=== PATIENT | female | born 1975 | race Caucasian/White ===

== ENCOUNTER 2019-04-01 15:25 | Emergency (ER) | payer MEDICAID, SELFPAY ==
[2019-04-01 16:26] VITALS: BP 129/61; PULSE 115; RESP 20; TEMP 38.1; O2SAT 99
--- NOTE | 2019-04-01 16:53 | ED.URI ---
HPI - URI/Sore Throat General Chief Complaint: Upper Respiratory Infection Stated Complaint: Possible Sinus Infection Time Seen by Provider: 04/01/19 16:47 Source: patient and RN notes reviewed Mode of arrival: ambulatory Limitations: no limitations History of Present Illness HPI Narrative: Patient presents today with a 2-day history of sore throat, body aches, headache, cough. She has been taking ibuprofen and Advil Cold and Sinus with some relief. She did not receive a flu vaccine this season. She has been exposed to strep throat. MD elicited complaint: cough Related Data Home Medications Medication Instructions Recorded Confirmed No Home Medications 04/01/19 04/01/19 Allergies Allergy/AdvReac Type Severity Reaction Status Date / Time cephalexin Allergy Unknown Rash Verified 04/01/19 16:51 Sulfa (Sulfonamide Allergy Unknown HIVES Verified 04/01/19 16:51 Antibiotics) guaifenesin [From Mucinex] Allergy Hives Verified 04/01/19 16:52 Review of Systems Review of Systems: Narrative: CONSTITUTIONAL: Denies fever, chills, or sweats.+Body aches EYES: Denies visual changes, redness, or discharge. ENT: Denies rhinorrhea, congestion, or otalgia.+Sore throat CARDIOVASCULAR: Denies chest pain, palpitations, or edema. RESPIRATORY: Denies dyspnea.+Cough GASTROINTESTINAL: Denies abdominal pain, nausea, vomiting, or diarrhea. GENITOURINARY: Denies dysuria or hematuria. SKIN: Denies rash, itching, or wounds. MUSCULOSKELETAL: Denies back pain, joint pain, or myalgia. NEUROLOGIC: Denies numbness, tingling, or weakness.+Headache PSYCH: Denies depression or anxiety. PMFSH Surgical History Surgical History (Updated 01/13/19 @ 19:36 by Julio César Quiñones PA-C) H/O umbilical hernia repair Social History Social History (Updated 01/13/19 @ 19:35 by Julio César Quiñones PA-C) Smoking status: Never smoker Comments At time of signature, I have reviewed and agree with nursing past medical, surgical, social and family history unless otherwise noted. Please see nursing chart for further information. There is no relevant family history pertinent to the presenting complaint Exam Narrative: Exam Narrative: GENERAL: Well-appearing, well-nourished, and in no acute distress. HEAD: Normocephalic, atraumatic. EYES: EOMI. No redness or drainage. Conjunctivae normal. ENT: Mucous membranes pink and moist. Nares clear. No rhinorrhea. TMs normal bilaterally. Throat normal. Uvula midline. NECK: Normal AROM. Supple. No lymphadenopathy. CHEST: No respiratory distress. Clear to auscultation. HEART: Regular rate and rhythm. No murmur appreciated. Normal peripheral pulses. ABDOMEN: Soft, nontender, nondistended, normal active bowel sounds. MUSCULOSKELETAL: No bony tenderness. EXTREMITIES: Normal range of motion. No edema. SKIN: Warm, dry, no rash. NEURO: No focal deficits. Alert and oriented x3. Gait steady. PSYCH: Normal affect. No signs of depression or anxiety. Course Vital Signs Vital signs: Vital Signs Temperature 100.6 F H 04/01/19 16:26 Pulse Rate 115 H 04/01/19 16:26 Respiratory Rate 20 04/01/19 16:26 Blood Pressure 129/61 04/01/19 16:26 Pulse Oximetry 99 04/01/19 16:26 Temperature 100.6 F H 04/01/19 16:26 Pulse Rate 115 H 04/01/19 16:26 Respiratory Rate 20 04/01/19 16:26 Blood Pressure 129/61 04/01/19 16:26 Pulse Oximetry 99 04/01/19 16:26 Reviewed. Pt has been instructed to follow up with her PCP regarding her elevated blood pressure today. MDM - URI/Sore Throat Differential Diagnosis Differential diagnosis: Likely upper respiratory infection, otitis media, viral infection, influenza, pharyngitis and other Lab Data Attestation: I reviewed the patient's lab results. Lab results narrative: Rapid strep negative Labs: Influenza A Screen Positive Reference Range: Negative Influenza B Screen Negative Reference Range: Negative Critica
== END 2019-04-01 17:00 | disposition home or self-care (01) ==
PROVIDERS: Emergency Provider Nurse Practitioner; PCP Internal Medicine
DX: J10.1 Influenza due to other identified influenza virus with other respiratory manifestations (principal)
CPT/HCPCS: 87081; 87804; 87880; 99213; G0463

== ENCOUNTER 2019-04-10 23:11 | Emergency (ER) | payer MEDICAID, SELFPAY ==
[2019-04-10 23:18] VITALS: BP 133/81; PULSE 95; RESP 18; TEMP 37.1; O2SAT 100
[2019-04-10 23:46] LABS: Add Urine Microscopic? YES; Appearance Urine Clear (Clear); Bilirubin Urine Negative (Negative); Blood Urine 1+ (Negative); Color Urine Yellow (Yellow); Glucose Urine UA Negative (Negative); Ketones Urine Negative (Negative); Leukocyte Esterase Ur Trace LEU/UL (Negative); Mucus Urine Few /lpf; Nitrate Urine Negative (Negative); Protein Urine 1+ mg/dL (Negative); Specific Grav Ur 1.027 (1.001-1.035); Squamous Epithelial Cell Urine Many /hpf (Few); Urobilinogen Urine Negative mg/dL (<2.0)
--- NOTE | 2019-04-11 01:08 | PC.NURSE ---
PT CAME BACK TO INTAKE DESK IMMEDIATELY AFTER BEING TAKEN BACK TO ED ROOM #9 AND STARTED WALKING TOWARD MAIN ED DOORS. THIS NUCLEAR WEAPONS CUSTODIAN ASKED PT IF SHE WAS LEAVING. PT TURNED AROUND AND RESPONED YES AND AMBULATED OUT OF ED WITH STEADY GAIT AT THIS TIME.
--- NOTE | 2019-04-11 01:09 | PC.NURSE ---
pt brought back to room 9 pt decided since she was able to void in waiting room and she was feeling better decided to leave and walk out at 0108
== END 2019-04-11 01:08 | disposition left against medical advice (07) ==
LOC: ANHED 23:58
PROVIDERS: General Practice; PCP Internal Medicine
DX: M54.6 Pain in thoracic spine (principal)
CPT/HCPCS: 81001; 81025; 99199

== ENCOUNTER 2023-02-23 08:50 | Outpatient (CLI) | payer OTHER, SELFPAY ==
--- NOTE | ~2023-02-23 | XR_ITS ---
XR UGIAC w barium swallow DATE: 02/23/2023 10:35 INDICATION: Globus sensation. Dysphagia. Heartburn. TECHNIQUE: Fluoroscopy and rapid sequence spot radiographs and overhead radiographs of the esophagus during oral ingestion of barium. Spot and overhead radiographs of stomach and duodenum Air-contrast technique COMPARISON: None FINDINGS: There is normal deglutition and esophageal peristalsis. There is a very small sliding hiatal hernia. No reflux was demonstrated. No stricture, mucosal fold thickening, erosion, ulceration, diverticulum or intraluminal mass lesion of the esophagus, stomach or duodenum is detected. IMPRESSION: Very small sliding hiatal hernia; otherwise negative Reviewed, dictated and finalized at [facility]. Reviewed, dictated and finalized at location [facility]. [facility] SPECIAL[facility]
== END 2023-02-23 08:51 | disposition home or self-care (01) ==
PROVIDERS: PCP Internal Medicine; Visit Provider Internal Medicine
DX: R13.10 Dysphagia, unspecified (principal); K44.9 Diaphragmatic hernia without obstruction or gangrene
CPT/HCPCS: 74246

== ENCOUNTER 2023-05-09 10:01 | Outpatient (CLI) | payer OTHER, SELFPAY | END 2023-05-09 10:02 | disposition home or self-care (01) | LOC: ANHSURGERY 10:06 | PROVIDERS: PCP Internal Medicine; Visit Provider Surgery | DX: K43.2 Incisional hernia without obstruction or gangrene (principal); Z01.818 Encounter for other preprocedural examination | CPT/HCPCS: 36415; 86850; 86900; 86901 ==

== ENCOUNTER 2023-05-12 01:18 | Day surgery (SDC) | payer OTHER, SELFPAY ==
[2023-05-02 15:26] VITALS: BMI 34.1
--- NOTE | 2023-05-02 15:30 | PC.NURSE ---
Report to the Outpatient Waiting Room, entrance under the green pavilion located off [facility], at time 6:00 on date 05/12/23. Planned Procedure Time: 7:30. Time changes happen often and if your time is changed the preop area will call you the afternoon before. - You and your visitor will be asked to self-screen and do not enter if you have any COVID symptoms. - A mask is optional within the hospital at this time. Patients may have clear liquids (water, carbonated beverages, clear teas, apple juice) until 3 hours prior to surgery (4:30) with a maximum of 20 ounces. - No food from midnight until time of surgery Take the following medications with a SIP of water the morning of surgery: NONE DO NOT STOP ANY OF YOUR OTHER PRESCRIPTION MEDICATIONS PRIOR TO SURGERY ?EXCEPT THE FOLLOWING Medications to discontinue per physician: IBUPROFEN Date to take last dose: PER DR. TOVAR Please no make-up, nail estonian, hairspray, perfume, deodorant, or body powder the day of surgery. No jewelry (including any body piercings) or valuables the day of surgery, leave them at home. Please take a shower or bath the night before, or the morning of, surgery with an antibacterial soap. Wear comfortable, loose fitting clothing. - Jewelry must be removed prior to entering the operating room. Rings and piercings that are not removed may be cut off. - The hospital will not accept responsibility for valuables. - Please leave all valuables, including medications, at home the day of surgery. If you are going home after surgery, a licensed log driver must drive you home. - NO public transportation without another adult if you receive anesthesia. - We recommend that an adult stay with you for 24 hours following discharge. - We also recommend that you do not drive, make important decision, drink alcoholic beverages, or take any drugs that were not prescribed by your health care provider for at least 24 hours after your discharge time. Follow any additional instructions given to you from your surgeon. If you or anyone in your household have experienced Covid symptoms in the past week, please notify your surgeon or the nurse liaison at the phone number below for possible testing. Telephone instructions given to GRIFFIN CHILDS and asked if any additional questions and then verbalized understanding. Patient advised to call surgeon office or pre surgery nurse liaison [phone] if any additional questions.
[2023-05-12] VITALS (11 sets, daily range): BP systolic 103–124; BP diastolic 55–74; PULSE 81–99; RESP 14–20; TEMP 36.4–36.8; O2SAT 94–100
[2023-05-12] MEDS: ACETAMINOPHEN 500 MG TABLET 1000 MG PO (06:37)
[2023-05-12] MEDS: KETOROLAC 15 MG/ML VIAL (*BKC) IV PUSH ×2 (06:50→10:38)
--- NOTE | 2023-05-12 07:11 | WPDANESEPPF ---
Anes - Initial Pre Proc Eval Procedure: Operation Date: 05/12/23 07:30 Proposed Procedures p Robotic Assisted Laparoscopic Recurrent Incisional Ventral Hernia Repair with Mesh, Possible Open - Charlie Pickard MD Date/Time: 05/12/23 07:11 Surgeon: Charlie Pickard MD Pre Op Diagnosis: Recurrent Ventral Incisional Hernia Patient Data Age: 47 Gender: F Height: 1.65 m Weight: 93 kg Allergies Allergy/AdvReac Type Severity Reaction Status Date / Time cephalexin Allergy Unknown Rash Verified 05/12/23 06:15 Sulfa (Sulfonamide Allergy Unknown HIVES Verified 05/12/23 06:15 Antibiotics) guaifenesin [From Mucinex] Allergy Hives Verified 05/12/23 06:15 Home Medications Medication Instructions Recorded Confirmed Type famotidine 10 mg tablet (Pepcid AC) 10 mg PO DAILY 03/09/23 05/12/23 History ibuprofen 200 mg capsule 200 mg PO Q6H PRN Pain 03/09/23 05/12/23 History Patient hx anesthesia problems: none Family hx anesthesia problems: none Results Review: All pre-operative results and documents have been reviewed as part of the pre-operative evaluation. [facility]LY [facility] Past Medical History Medical History GERD (gastroesophageal reflux disease) Surgical History Surgical History H/O umbilical hernia repair Family History Family History Mother Cervical cancer Diabetes mellitus Father Lung cancer Social History Social History Smoking packs per day: 0.5 Smoking cigarettes per day: 10.0 Years smoked: 10 Smoking pack-years: 5.00 Smoking status: Former smoker Tobacco type: cigarettes Smoking end date: 02/06/06 Alcohol intake: never Alcohol use details: rarely Substance use: never Substance use type: does not use Living arrangements: with family 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 Informed Consent: The patient's anesthetic plan and its attendant risks and benefits were discussed with the patient/family/POA. Questions were solicited and answers provided to the satisfaction of the patient/family/POA.
--- NOTE | 2023-05-12 07:21 | PM.IMHP ---
H&P: HPI History of Present Illness Date/Time: 05/12/23 07:21 Chief Complaint: Recurrent periumbilcal ventral hernia Narrative: Estephanie is a 47 y/o female who presents with a small bulge to the right of her umbilicus at the request of Dr. Johnson. She states this started about 1 year ago. She states the bulge has increased in size and is occasionally tender. Bulge is reducible when she lays down. She struggles with constipation. She had an umbilical hernia repair with no [place] [address] Whitehead. Review of Systems Review of Systems: The remainder of the review of systems to include constitutional, HEENT, cardiovascular, respiratory, GI, , integumentary, musculoskeletal, endocrine, immunologic, hematologic, psychiatric, and neurologic are all negative except for which is mentioned above in the HPI. [facility] Past Medical History Medical History GERD (gastroesophageal reflux disease) Surgical History Surgical History H/O umbilical hernia repair Family History Family History Mother Cervical cancer Diabetes mellitus Father Lung cancer Social History Social History Smoking packs per day: 0.5 Smoking cigarettes per day: 10.0 Years smoked: 10 Smoking pack-years: 5.00 Smoking status: Former smoker Tobacco type: cigarettes Smoking end date: 02/06/06 Alcohol intake: never Alcohol use details: rarely Substance use: never Substance use type: does not use Living arrangements: with family 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 Gender identity (if verbalized by the patient): Female Spiritual care concerns: No Meds Home Medications and Allergies Home Medications Medication Instructions Recorded Confirmed Type famotidine 10 mg tablet (Pepcid AC) 10 mg PO DAILY 03/09/23 05/12/23 History ibuprofen 200 mg capsule 200 mg PO Q6H PRN Pain 03/09/23 05/12/23 History Allergies Allergy/AdvReac Type Severity Reaction Status Date / Time cephalexin Allergy Unknown Rash Verified 05/12/23 06:15 Sulfa (Sulfonamide Allergy Unknown HIVES Verified 05/12/23 06:15 Antibiotics) guaifenesin [From Mucinex] Allergy Hives Verified 05/12/23 06:15 Exam Const: General: comfortable and no acute distress HENMT: Ears: TM's normal bilaterally Face/Nose/Sinus: Normal nares present Mouth: Yes moist mucous membranes Eyes: General: appearance normal, both eyes and all related structures Sclera: sclerae normal Pupils: Equal, round and reactive pupils present EOM: EOMs intact bilaterally Neck: Neck: supple and no JVD Resp: Effort & Inspection: normal respiratory effort Auscultation: clear to auscultation bilaterally Cardio: Rate: regular rate Rhythm: regular rhythm GI: Other: Soft, non distended, minimal tenderness in the periumbilical region. Small incisional recurrent periumbilical hernia. Mild supraumbilical diastasis. Defect likely 2-3cm. Skin: General skin exam: normal color and no rashes or lesions noted Neuro: General: gait normal Speech: normal speech Extrem: General: normal to inspection Psych: Mental Status: mental status grossly normal Affect: normal affect Assessment and Plan Assessment and plan (1) Recurrent ventral incisional hernia: Code(s): K43.2 - Incisional hernia without obstruction or gangrene Status: Acute Assessment and Plan: I have reviewed Dr. Johnson's office note prior to the office visit. The patient has a small bulge to the right of her umbilicus that has increased in size and is tender. A recurrent ventral incisional hernia was noted on physical exam. I have recommended a robotic assisted laparoscopic recurrent incisional ventral hernia repair with mesh, possible open, to be done under general anesthesia as an
[2023-05-12] MEDS: SCOPOLAMINE 1 MG PATCH 1 PATCH TRANSDERM (07:24)
--- NOTE | 2023-05-12 07:24 | WPDHPUPDATE1 ---
History and Physical Update Update Date/Time: 05/12/23 07:24 History and Physical has been reviewed, including an updated exam of the patient. There are NO changes in the patient's condition. Risks, benefits, and alternatives have been discussed and questions answered. Patient agrees to proceed with procedure.
[2023-05-12] MEDS: LACTATED RINGERS 1,000 ML 30 ML IV CONT ×3 (07:25→12:27)
[2023-05-12] MEDS: CLINDAMYCIN 900 MG/D5W 50 ML 900 MG/50 ML PIGGYBACK 50 MG IVPB (07:45)
[2023-05-12] MEDS: LIDO 1%/EPINEPHRINE 1:100,000 20 ML VIAL 30 ML INFILTRATE (08:42)
[2023-05-12] MEDS: BUPivacaine HCL 0.5% PF 30 ML VIAL INFILTRATE (08:43)
[2023-05-12] MEDS: fentaNYL CITRATE INJ (*CRX) 100 MCG/2 ML VIAL 25 MCG IV PUSH ×4 (11:47→12:52)
[2023-05-12] MEDS: oxyCODONE HCL (*CRX) 5 MG TAB IR PO (13:09)
--- NOTE | 2023-05-12 19:23 | W.PM.PROC2 ---
Procedure Note - Detailed Date of Procedure 05/12/23 Pre-op Diagnosis Recurrent Incarcerated Ventral Incisional Hernia Post-op Diagnosis Same Procedure Performed robotic assisted laparoscopic incarcerated recurrent incisional hernia repair with [employer] Synecor preperitoneal mesh ( [id number]) Surgeon Charlie Pickard MD Anesthesia General Indications Patient is a 47-year-old female who presented with mildly painful bulge in the periumbilical region. On examination she appeared to have an incarcerated recurrent umbilical ventral hernia. She had a previous open umbilical hernia repair many years ago. This is done without use of any mesh. She presents now for a robotic assisted laparoscopic repair of the incarcerated recurrent incisional hernia. Findings Patient actually had multiple Guinean cheese defects. The largest defect was 2cm located just above the umbilicus. A 2nd defect measuring 1cm was about 5cm below the umbilicus in the midline and a 3rd defect was noted to be about 5cm above the periumbilical defect and this defect measured approximately 1cm in diameter. All of these defects had portions of preperitoneal fat or omentum within them which was all viable. No bowel involvement with these hernias was noted. The distance the cephalad and most caudad defect was 10cm. Description of Procedure After informed consent was obtained patient brought to the operating room she was placed supine position and general endotracheal anesthesia was administered. Duffy catheter was placed decompress the bladder. The abdomen was then prepped and draped usual sterile fashion. A time-out was then performed correctly identifying the patient as well as procedure to be performed verified she was given perioperative IV antibiotics. I 1st started by placing a 5mm Optiview port left upper quadrant with a direct optical insertion. Once inside the abdomen insufflated to adequate pneumoperitoneum of 15mmHg of CO2. In looking at the abdomen underneath the area the umbilicus it appeared that she had a recurrent incisional hernia with incarcerated preperitoneal fat. I then placed additional robotic trocar ports to include 8mm trocar ports in the right lateral abdominal wall under direct visualization. I then had the Jasbir robot brought to the patient's bedside and then I switched out the 5mm Optiview port to a 10mm Optiview port. The Betaspringi robot was then docked to the patient's right side of the bed and then the arms the robot were attached to the robotic ports. Robotic instruments were then advanced into the abdomen under direct visualization. I then scrubbed out the procedure procedure and sat down at the robotic console to perform the dissection robotically. I 1st started by making a peritoneal flap the left side of the abdomen utilizing robotic deborah very carefully created a preperitoneal flap along the left side of the abdomen. I continued my dissection towards the midline with energized deborah taking great care not to make too many being holes into the peritoneum. Underneath the falciform ligament I found a portion of possible that was incarcerated within a mid epigastric hernia defect measuring about 1cm in diameter. The incarcerated portions of the falciform ligament were reduced out of the defect. I continued my dissection more toward the umbilicus where the main hernia defect was noted. Old suture material was seen and there was no mesh in the area. I then reduced additional preperitoneal fat out of this recurrent hernia defect and this defect measured approximately 2cm in diameter. And diabetic continued my dissection in the preperitoneal space to the lower abdomen I encountered yet a 3rd 1cm hernia defect midline and the preperitoneal fat was reduced out of this defect as well. I continued creating a preperitoneal plane to the right mid lateral abdominal wall. At this point I felt I had enough dissection of the preperitoneal space done to place the m
== END 2023-05-12 13:58 | disposition home or self-care (01) ==
PROVIDERS: PCP Internal Medicine; Visit Provider Surgery
PROC: (CPT 49618; principal; 2023-05-12 07:30)
DX: K43.0 Incisional hernia with obstruction, without gangrene (principal); K21.9 Gastro-esophageal reflux disease without esophagitis; Z87.891 Personal history of nicotine dependence; E66.9 Obesity, unspecified; Z68.35 Body mass index [BMI] 35.0-35.9, adult
CPT/HCPCS: 49618; S2900; A9270; J1100; J1885; J2250; J3010; J7120

== ENCOUNTER 2024-05-30 08:22 | Outpatient (RCR) | payer OTHER, SELFPAY ==
--- NOTE | 2024-05-30 10:00 | OPREHPOC ---
Outpatient Therapy Plan of Care This is a Multidisciplinary Plan of Care that may contain components documented by all disciplines (PT, OT, and ST.) PT Problem 1 PT Problem #1 Knowledge Deficit PT Goal 1 Goal / Goal Update Independent and compliant with HEP. Target Visit 4 PT Problem 2 PT Problem #2 Pain PT Goal 1 Goal / Goal Update Pt to report no more than 5/10 pain at worst. Target Visit 10 PT Problem 3 PT Problem #3 Impaired Strength PT Goal 1 Goal / Goal Update Pt to improve gross bilat hip and ankle strength to 5/5 without pain. Target Visit 10 PT Problem 4 PT Problem #4 Impaired Range of Motion PT Goal 1 Goal / Goal Update Pt to improve L hip passive ER ROM to 50 deg without pain. Target Visit 10 PT Problem 5 PT Problem #5 Impaired Functional Mobility PT Goal 1 Goal / Goal Update Pt to be able to cross L hip over into figure 4 position without pain. Pt to be able to roll and get in/out of bed without pain. Pt to note 20% improvement on LEFS. Target Visit 10
--- NOTE | 2024-05-30 10:00 | PTOPEVAL1 ---
Assessment and note entered by Gladys Griffin, PT Evaluation Information Assessment Status Evaluation Diagnosis R ankle pain, L hip flexor tightness ICD-10 Condition Codes (PT) Pain in right ankle and joints of right foot M25. 571 Other ICD-10 Condition Codes ( M24.552 PT) Onset 04/29/24 Subjective Information Pt reports R ankle pain started one month ago after jumping rope. She reports she looked down at her ankle one day and it was very swollen. She hasn't jumped rope in a week and a half due to this. States she also has plantar fasciitis and thinks it might be related to the swelling. She also notes L hip pain that has been going on for more than a year. Her pain occurs when she crosses her L leg over her R and let's her knee fall to the side. When doing this she notes a sharp pain in the front of the hip and in the groin. Pain also occurs when walking long distances and sitting for more than 15 mins. Pt also reports history of back, neck and TMJ pain . Reported Pain Level Pain Score 0,7: Self Report Assessment PT Clinical Summary Mrs. Carmona is a 48 yo female who enters the clinic with complaints of R ankle pain and L hip tightness. Her ankle strength and mobility are good bilaterally but she verbalized bilateral swelling that is worse at night. Recommended pt to return to doctor to discuss this. Regarding her hip, pt demonstrates moderate restriction in L hip ER AROM/PROM as well as pain with end-range flexion, ER and IR. She also experiences hip and low back/SI region pain with functional activities such as prolonged sitting and transitional movements like rolling in bed. She will benefit from skilled PT intervention to address these deficits to be able to perform functional and recreational tasks with less pain. Plan of Care Interventions Electrical Stimulation,Gait Training,Hot Pack/Cold Pack,Manual Therapy,Neuro Re-education,Patient/ Caregiver Education,Therapeutic Activities, Therapeutic Exercise,Self-Care/Home Management PT Services Indicated Yes Treatment Frequency and 2x/week for 10 visits Duration These treatments will address the objective and functional deficits as defined above. The patient will be advanced safely and appropriately in order for the patient to progress towards his/her prior level of function. Additional exercises will be introduced and as well as a comprehensive home exercise program upon discharge, if needed, ?to ensure carryover of functional gains achieved in the clinic. This treatment plan has been reviewed and agreement upon by the patient.
--- NOTE | 2024-07-11 16:22 | OPREHPOC ---
Outpatient Therapy Plan of Care This is a Multidisciplinary Plan of Care that may contain components documented by all disciplines (PT, OT, and ST.) PT Problem 1 PT Problem #1 Knowledge Deficit PT Goal 1 Goal / Goal Update Independent and compliant with HEP. Target Visit 4 Progress Met PT Goal 2 Goal / Goal Update Continue to progress PT Problem 2 PT Problem #2 Pain PT Goal 1 Goal / Goal Update Pt to report no more than 5/10 pain at worst. Target Visit 10 Progress Not Met PT Goal 2 Goal / Goal Update continue Target Visit 18 PT Problem 3 PT Problem #3 Impaired Strength PT Goal 1 Goal / Goal Update Pt to improve gross bilat hip and ankle strength to 5/5 without pain. Target Visit 10 Progress Not Met PT Goal 2 Goal / Goal Update Continue Target Visit 18 PT Problem 4 PT Problem #4 Impaired Range of Motion PT Goal 1 Goal / Goal Update Pt to improve L hip passive ER ROM to 50 deg without pain. Target Visit 10 Progress Not Met PT Goal 2 Goal / Goal Update Continue Target Visit 18 PT Problem 5 PT Problem #5 Impaired Functional Mobility PT Goal 1 Goal / Goal Update Pt to be able to cross L hip over into figure 4 position without pain. -met Pt to be able to roll and get in/out of bed without pain. -not met Pt to note 20% improvement on LEFS. -not met Target Visit 10 PT Goal 2 Goal / Goal Update Continue 2 & 3 Target Visit 18
--- NOTE | 2024-07-11 16:22 | PTOPPROG ---
Assessment and note entered by Penny Farah, PT Evaluation Information Assessment Status Progress Diagnosis R ankle pain, L hip flexor tightness ICD-10 Condition Codes (PT) Pain in right ankle and joints of right foot M25. 571 Other ICD-10 Condition Codes ( M24.552 PT) Onset 04/29/24 Subjective Information Pt reports that she is able to cross her left leg when sitting now without limitations but her pain is about the same. She continues to have bilateral ankle swelling, decreased tolerance to walking, and decreased tolerance to sitting. Imaging of her hips revealed mild osteoarthritis. She has a history of low back pain as well. She does feel she is starting to notice improvements in her hips and would like to continue with PT. Assessment PT Clinical Summary April Carmona has completed 10 skilled PT visits for left hip pain. She also was evaluated for right ankle pain but reports her ankle has not been painful. She reports her hips are starting to feel a little better but she has chronic low back pain as well on the left side and that is still present. She has pain with getting out of bed, laying on the left side, and performing heavy housechores. She demonstrates tenderness on the left greater trochanter, decreased hip IR ROM, decreased lumbar AROM, decreased core and left hip strength, and decreased functional mobility. She will continue to benefit from skilled PT to further address left hip and low back pain. Plan of Care Interventions Electrical Stimulation,Hot Pack/Cold Pack,Manual Therapy,Neuro Re-education,Patient/Caregiver Education,Therapeutic Activities,Therapeutic Exercise PT Services Indicated Yes Treatment Frequency and 2 times a week for 8 visits Duration These treatments will address the objective and functional deficits as defined above. The patient will be advanced safely and appropriately in order for the patient to progress towards his/her prior level of function. Additional exercises will be introduced and as well as a comprehensive home exercise program upon discharge, if needed, ?to ensure carryover of functional gains achieved in the clinic. This treatment plan has been reviewed and agreement upon by the patient.
--- NOTE | 2024-07-23 16:39 | PTOPDC ---
Assessment and note entered by Marcia Rashid DPT Evaluation Information Assessment Status Discharge Diagnosis R ankle pain, L hip flexor tightness ICD-10 Condition Codes (PT) Pain in right ankle and joints of right foot M25. 571 Other ICD-10 Condition Codes ( M24.552 PT) Onset 04/29/24 Subjective Information Patient reports she has been able to get into and out of bed with no issues. She reports sitting for prolonged periods of time has been the most troublesome with back and hip pain resulting. She reports she has a follow up with MD soon but is not sure when. Reported Pain Level Pain Score 5,0,0: Self Report Assessment PT Clinical Summary Mrs. Carmona attended 12 visits of skilled PT with some progressions towards goals but did not meet all goals. She improved LE strength and improved LE flexibility but did not meet set goals. She continues to have pain in the low back and hip especially in prolonged sitting. She will be discharged to independent [facility] and instructed to follow up with MD due to plateau in progress. Plan of Care PT Services Indicated No
== END 2024-07-23 20:00 | disposition home or self-care (01) ==
LOC: CHSPT 08:22
PROVIDERS: PCP Nurse Practitioner Family; Visit Provider Nurse Practitioner Family
DX: M25.571 Pain in right ankle and joints of right foot (principal); M24.552 Contracture, left hip
CPT/HCPCS: 71046; 93005; 97110; 97140; 97161; 97530; 97750

== ENCOUNTER 2024-06-03 10:20 | Outpatient (CLI) | payer OTHER, SELFPAY ==
--- NOTE | ~2024-06-03 | XR_ITS ---
XR chest 2V Ordering provider: Dmitri Johnson MD History: 48 years Female with . PALPITATIONS . Comparison: February 25, 2013 FINDINGS: MEDIASTINUM: The cardiac silhouette is not enlarged. LUNGS: No effusions or pneumothorax. Opacity seen in the right upper lobe area which may be focal ate lectasis versus pneumonia. Nodule cannot be excluded. Follow-up advised. OTHER: No free air under the diaphragm. Degenerative changes of the spine. IMPRESSION: Focal area of atelectasis versus pneumonia versus nodule. 3 months follow-up advised. Reviewed, dictated and finalized at location A. IMPRESSION: Focal area of atelectasis versus pneumonia versus nodule. 3 months follow-up ad alejanrdoed.
--- NOTE | 2024-06-03 10:29 | ECG_ITS ---
Test Date: 2024-06-03 10:47:46 Measurements Intervals [place] Rate: 94 P: 26 MN: 145 QRS: 31 QRSD: 81 T: 47 QT: 342 QTc: 429 Interpretive Statements SINUS RHYTHM BASELINE ARTIFACT- III NORMAL ECG No previous ECG available for comparison Electronically Signed On 06-03-2024 11:05:22 CDT by Gustavo Meza D.O.
--- OUTSIDE RECORDS SUMMARY | 2024-06-03 11:54 | XMS_ITS | Clinical Summary ---
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 Name Role Phone Unavailable Primary Care Provider Unavailabl e Social History Tobacco Use Types Packs/Day Years Used Date Smoking Tobacco: Never Assessed Comments Unknown Sex and Gender Information Value Date Recorded Sex Assigned at Not on file Legal Sex Female 11:10 PM CDT Gender Identity Not on file Sexual Orientation Not on file Plan of Treatment Health Maintenance Due Date Last Done Comments Cervical Cancer Screening Pa p Smear (Age 30 to 64) Every 3 Years 1977 Colorectal Cancer Screening Colonoscopy (10 Years) 1977 Annual Physical 1980 Hepatitis C 08/19/1995 DTaP, Tdap and Td Vaccines ( 1 - Tdap) 1996 Hepatitis B Vaccines (1 of 3 - 19+ 3-dose series) 1996 Cervical Cancer Screening Pa p with HPV Testing (Age 30 to 64) Every 5 Years 08/19/2007 Cervical Cancer Screening with HPV 08/19/2007 Mammogram Screening 2017 COVID-19 Vaccine (2023-2 5 season) 2023 Meningococcal B Vaccine Aged Out No l onger eligible based on patient's age to complete this topic Meningococcal Vaccine Aged Out No hilda yamile eligible based on patient's age to complete this topic Pneumococcal Vaccine: Pediat rics (0 to 5 Years) and At-Risk Patients (6 to 49 Years) Aged Out No longer eligible b ased on patient's age to complete this topic RSV Immunizations Under 20 Months Aged Out No longer eligible based on patient's age to complete this topic
--- OUTSIDE RECORDS SUMMARY | 2024-06-03 11:54 | XMS_ITS | Clinical Summary ---
Author Organization [facility] Address [address] [place] [address] Care Team Providers Care Performance Analyst Name Role Phone Dmitri Johnson MD Primary Care Provider [phone] Source Comments [facility],non-owned Affiliates and Associated Physician Practices is amultiple site organization consisting of ambulatory clinics and hospital sitesin [place], [place], [place] and [place]. This disclosure is being madepursuant to the Care Everywhere program and may not contain all information available regarding this patient. 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 Gender Identity Not on file Sexual Orientation Not on file Plan of Treatment Health Maintenance Due Date Last Done Comments COLOGUARD (AGES 45-75) - COL ON CA SCREENING 1977 COLON MONITORING 1977 COLONOSCOPY - COLON CA SCREENING 1977 CT COLONOGRAPHY - COLON CA SCREENING 1977 Colorectal Cancer Screening 1977 FIT - COLON CA SCREENING 1977 FLEX SIG - COLON CA SCREENING 1977 LIPID TESTING 1977 MAMMOGRAM 1977 HIV SCREENING 1992 HEPATITIS C SCREENING 08/14/1995 DTAP/TDAP/TD VACCINES (1 - Tdap) 1996 HEPATITIS B VACCINE (1 of 3 - 19+ 3-dose series) 1996 COVID-19 VACCINE (2023-2 5 season) 2023 DEPRESSION SCREENING 02/07/2024 INFLUENZA VACCINE (Season Ended) 2024 ZOSTER VACCINE (1 of 2) 08/19/2027 HIB VACCINE Aged Out No longer eligi ble based on patient's age to complete this topic HPV VACCINE Aged Out No longer eligi ble based on patient's age to complete this topic MENINGOCOCCAL (Group B) VACC INE SHARED DECISION-MAKING Aged Out No longer eligibl e based on patient's age to complete this topic MENINGOCOCCAL GROUPS A/C/Y/W VACCINE Aged Out No longer eligible b ased on patient's age to complete this topic PNEUMOCOCCAL VACCINE Aged Out No long er eligible based on patient's age to complete this topic Care Teams Performance Analyst Relationship Specialty Start Date End Date Dmitri Johnson MD [address] [place] [id number] PCP - General 04/14/10
== END 2024-06-03 10:21 | disposition home or self-care (01) ==
LOC: CHSLAB 10:22 → CHSIMG 10:26
PROVIDERS: PCP Internal Medicine; Visit Provider Internal Medicine
DX: R60.9 Edema, unspecified (principal); R00.2 Palpitations; Z83.3 Family history of diabetes mellitus; R91.8 Other nonspecific abnormal finding of lung field
CPT/HCPCS: 71046; 93005

== ENCOUNTER 2024-06-07 12:11 | Outpatient (CLI) | payer OTHER, SELFPAY ==
--- NOTE | ~2024-06-07 | CT_ITS ---
Clinical Indication: Lung nodule CT Scan of the Chest with Contrast: Technique: Contiguous sections were acquired throughout the chest after intravenous administration of 100 cc of Omnipaque 350. Dose reduction technique was used on this scan by utilizing automated expos ure control and iterative reconstruction technique. The dose-length product (DLP) was 202.96 mGy-cm. Findings: There is no evidence of any significant mediastinal, hilar or axillary lymphadenopathy. Residual thym ic tissue in the anterior mediastinum. There is no filling defect in the pulmonary arterial tree to s uggest pulmonary embolus. There is no evidence of aortic dissection or aneurysm. There is no evidence of pleural or pericardial effusion. There is an area somewhat irregular consolidation in the right upper lobe with focal air bronchograms , measuring 2.8 x 1.3 cm in transverse dimensions (axial image 32). Images through the upper abdomen reveal no abnormalities. Impression: 2.8 x 1.3 cm area of consolidation with probable air bronchograms or possibly central cavitation the right upper lobe. Findings could reflect pneumonia, post inflammatory change, or possibly neoplastic lesion such as bronchoalveolar cell carcinoma. Follow-up exam in 1-3 months recommended to assess for interval change/stability. PET/CT number tissue sampling could be considered as indicated. Reviewed, dictated and finalized at location . Impression: 2.8 x 1.3 cm area of consolidation with probable air bronchograms or possibly c entral cavitation the right upper lobe. Findings could reflect pneumonia, post inflammatory change, or possibly neoplastic lesion such as bronchoalveolar cell carcinoma. Follow-up exam in 1-3 months recommended to assess for interval jesus nge/stability. PET/CT number tissue sampling could be considered as indicated.
[2024-06-07 12:34] LABS: Basophils Absolute Auto 0.02 K/mm3 (0.00-0.10); Basophils Percent Auto 0.4 % (0.0-1.0); Eosinophils Absolute Auto 0.11 K/mm3 (0.02-0.50); Eosinophils Percent Auto 2.5 % (1.0-6.0); Hematocrit 37.2 % (35.0-49.0); Hemoglobin 10.9 g/dL (12.0-15.0); Immature Granulocyte Absolute 0.01 K/mm3 (0.00-0.00); Immature Granulocyte Percent A 0.2 % (0.0-0.0); Lymphocytes Absolute Auto 2.03 K/mm3 (1.10-4.50); Lymphocytes Percent Auto 45.6 % (18.0-42.0); Mean Corpuscular HGB Conc 29.3 g/dL (32-36); Mean Corpuscular Hemoglobin 22.1 pg (27.0-31.0); Mean Corpuscular Volume 75.5 fL (78.0-102.0); Mean Platelet Volume 11.7 fl (9.2-11.8); Monocytes Absolute Auto 0.36 K/mm3 (0.10-0.90); Monocytes Percent Auto 8.1 % (2.0-11.0); Neutrophils Absolute Auto 1.92 K/mm3 (1.70-7.20); Neutrophils Percent Auto 43.2 % (50.0-70.0); Platelet Count Result 280 K/mm3 (150-420); Red Blood Count 4.93 M/mm3 (4.20-5.40); Red Cell Distribution Width 15.3 % (11.6-14.4); Reticulocyte Hemoglobin Conten 23.5 pg (28.0-35.0); Reticulocytes Absolute 0.04 M/mm3 (0.02-0.10); White Blood Count 4.5 K/mm3 (4.8-10.8)
[2024-06-07 12:53] LABS: Ferritin 8 ng/mL (8-252); Iron 22 ug/dL (50-170); Lactate Dehydrogenase 131 U/L (81-234); Percent Iron Saturation 6 % (12-57)
[2024-06-07 12:54] LABS: CRP < 0.5 mg/dL (0.0-0.9)
--- OUTSIDE RECORDS SUMMARY | 2024-06-08 13:05 | XMS_ITS | Clinical Summary ---
Author Organization [facility] Address [address] [place] [address] Care Team Providers Care Optometrist Name Role Phone Unavailable Primary Care Provider [...]
--- OUTSIDE RECORDS SUMMARY | 2024-06-08 13:05 | XMS_ITS | Clinical Summary ---
Author Organization [facility] Address [address] [place] [address] Care Team Providers Care Director Of Digital Technology Name Role Phone Dmitri Johnson MD Primary Care Provider [phone] Source Comments [facility],non-owned Affiliates and Associated Physician Practices is amultiple site organization consisting of ambulatory clinics and hospital sitesin [place], [place], [place] and [place]. This disclosure is being madepursuant to the Care Everywhere program and may not contain all information available regarding this patient. 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
[2024-06-10 08:43] LABS: Thyroid Peroxidase Antibodies <1 IU/mL (<9)
[2024-06-11 12:29] LABS: Red Blood Cell Folate 599 ng/mL RBC (>280)
[2024-06-13 06:44] LABS: Methylmalonic Acid 73 nmol/L (55-335)
== END 2024-06-07 12:12 | disposition home or self-care (01) ==
PROVIDERS: PCP Internal Medicine; Visit Provider Internal Medicine
DX: R91.1 Solitary pulmonary nodule (principal); E03.9 Hypothyroidism, unspecified; D64.9 Anemia, unspecified; R91.8 Other nonspecific abnormal finding of lung field
CPT/HCPCS: 36415; 71260; 82728; 82747; 83540; 83550; 83615; 83921; 84445; 85025; 85046; 86140; 86376; Q9967

== ENCOUNTER 2024-06-13 08:06 | Outpatient (CLI) | payer OTHER, SELFPAY ==
--- NOTE | ~2024-06-13 | US_ITS ---
EXAMINATION: US thyroid DATE: 06/13/2024 08:27 INDICATION: Hyperthyroidism TECHNIQUE: Multiple ultrasound images of the thyroid were obtained. COMPARISON: None. FINDINGS: The right thyroid lobe measures 4.7 x 1.1 cm. The left thyroid lobe measures 5.6 x 1.7 x 1.7 cm. 1 cm predominantly solid isoechoic nodule with smooth margins, increased vascular and color Doppler and no echogenic foci in the right thyroid lobe. (TI-RADS 3, mildly suspicious , FNA if >=2.5 cm, annual followup is >=1.5 cm). There is heterogeneous echogenicity with increased vascular flow on color Dop pler throughout the remainder of the thyroid. IMPRESSION: 1. Heterogeneous thyroid with increased vascular flow on color Doppler which could be seen with thyro iditis. 2. 1 cm TI-RADS 3 right thyroid nodule which remains below size criteria for either biopsy or follow- up. Reviewed, dictated and finalized at location A. IMPRESSION: 1. Heterogeneous thyroid with increased vascular flow on color Doppler which co uld be seen with thyroiditis. 2. 1 cm TI-RADS 3 right thyroid nodule which remains below size criteria for ei ther biopsy or follow-up.
--- OUTSIDE RECORDS SUMMARY | 2024-06-13 08:11 | XMS_ITS | Clinical Summary ---
Author Organization [facility] Address [address] [place] [address] Care Team Providers Care Liquid Fertilizer Servicer Name Role Phone Unavailable Primary Care Provider [...]
--- OUTSIDE RECORDS SUMMARY | 2024-06-13 08:11 | XMS_ITS | Clinical Summary ---
Author Organization [facility] Address [address] [place] [address] Care Team Providers Care Drafter Refrigeration Name Role Phone Dmitri Johnson MD Primary Care Provider [phone] Source Comments [facility],non-owned Affiliates and Associated Physician Practices is amultiple site organization consisting of ambulatory clinics and hospital sitesin [place], [place], [place] and [place]. This disclosure is being madepursuant to the Care Everywhere program and may not contain all information available regarding this patient. 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
== END 2024-06-13 08:07 | disposition home or self-care (01) ==
LOC: CHSIMG 08:09
PROVIDERS: PCP Internal Medicine; Visit Provider Internal Medicine
DX: E05.90 Thyrotoxicosis, unspecified without thyrotoxic crisis or storm (principal); D64.9 Anemia, unspecified; E04.1 Nontoxic single thyroid nodule
CPT/HCPCS: 76536

== ENCOUNTER 2024-06-25 11:15 | Outpatient (CLI) | payer OTHER, SELFPAY ==
--- NOTE | ~2024-06-25 | XR_ITS ---
XR hip BI 2V w AP pelvis 06/25/2024 11:28 Indication: Hip pain. Procedure: AP pelvis and 2 views each hip Comparison: No prior studies for comparison. Findings: There is mild symmetric osteoarthritis of the hips. Pelvic rings are intact. No acute fract ure or traumatic malalignment. Sacral foramen are symmetric. Impression: 1: Mild bilateral symmetric osteoarthritis of the hips. Reviewed, dictated and finalized at location B. Impression: 1: Mild bilateral symmetric osteoarthritis of the hips.
--- OUTSIDE RECORDS SUMMARY | 2024-06-25 11:20 | XMS_ITS | Clinical Summary ---
Author Organization [facility] Address [address] [facility] [place] [address] Care Team Providers Care Fuse Cup Expander Name Role Phone Dmitri Johnson MD Primary Care Provider [phone] Source Comments [facility],non-owned Affiliates and Associated Physician Practices is amultiple site organization consisting of ambulatory clinics and hospital sitesin [place], [place], [place] and [place]. This disclosure is being madepursuant to the Care Everywhere program and may not contain all information available regarding this patient. 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
--- OUTSIDE RECORDS SUMMARY | 2024-06-25 11:20 | XMS_ITS | Clinical Summary ---
Author Organization [facility] Address [address] [place] [address] Care Team Providers Care Frit Maker Name Role Phone Unavailable Primary Care Provider [...]
== END 2024-06-25 11:16 | disposition home or self-care (01) ==
PROVIDERS: PCP Internal Medicine; Visit Provider Internal Medicine
DX: M25.552 Pain in left hip (principal); M25.551 Pain in right hip; M16.0 Bilateral primary osteoarthritis of hip
CPT/HCPCS: 73521